=== PATIENT | female | born 1995 | race Caucasian/White ===

== ENCOUNTER 2016-12-09 20:35 | Emergency (ER) | payer OTHER ==
[~2016-12-09] VITALS: Ht 167.6 cm; Wt 71.6 kg
[~2016-12-09 20:35] MED LIST: BCPILLS PO; CETI10TA84 PO
[2016-12-09 20:49] VITALS: TEMP 36.9; Ht 167.6 cm; Wt 71.6 kg
[2016-12-09] MEDS ORDERED: IBUP-1050 PO (20:58)
--- NOTE | 2016-12-09 22:01 | DIAGNOSTIC IMAGING REPORT ---
RIGHT HAND MIN 3 VIEWS ROUTINE CLINICAL HISTORY: Right hand pain status post trauma COMPARISON: None. DISCUSSION: No fractures or dislocations are visualized. IMPRESSION: No fractures or dislocations identified. Electronically signed by: Srinath Vaughn M.D. 12/09/2016 10:00 PM Dictated Date/Time: 12/09/2016 9:59 PM
[2016-12-09] MEDS ORDERED: OXYCODONE IR HOME PACK PO STA (22:36)
--- NOTE | 2016-12-09 22:36 | EMERGENCY ROOM VISIT NOTE ---
History First contact with patient: 21:06 Chief Complaint: FINGER PAIN Stated Complaint: BROKEN/SPRAINED FINGER History of Present Illness The patient is a 21 year old female who presents to the Emergency Room via private vehicle accompanied by male with complaints of "broken/sprained finger" . The patient states that earlier today around 9 AM, she was attempting to escort a horse when the horse became spooked and ran forward while the rope that was attached to the horse was at attached the patient's hand. She states that the rope then became wrapped around her fingers, and lastly her right ring finger. She states that it then pulled this region and now she rates the pain in the right fourth digit and distal metacarpal as 6-7/10 with range of motion. She notes minimal pain at rest. She denies any bleeding but does point to bruising on the ventral aspect of the right fourth digit. She states she is right-handed and believes her tetanus is up-to-date. Review of Systems A complete 6-point Review of Systems was discussed with the patient, with pertinent positives and negatives listed in the History of Present Illness. All remaining Review of Systems questions can be considered negative unless otherwise specified. Past Medical/Surgical History Medical Problems: (1) Chronic streptococcal tonsillitis Surgical Problems: (1) No history of previous surgery Family History No pertinent family history at this time. Social History Smoking Status: Never Smoker Alcohol Use: occasionally Marital Status: single Occupation Status: unemployed Social History: Patient is currently employed working with horses. Current/Historical Medications Scheduled Control Pills ( Control Pills), 1 TAB PO DAILY Cetirizine (Zyrtec), 10 MG PO DAILY Ibuprofen (Advil), 200-600 MG PO Q4H Allergies Coded Allergies: Latex1 -Allergic Contact Dermititis (Verified Allergy, Mild, dermititis, ) Physical Exam Vital Signs Date Time Temp Pulse Resp B/P Pulse Ox O2 Delivery O2 Flow Rate FiO2 12/09/16 22:50 76 16 119/62 99 Room Air 12/09/16 20:49 36.9 80 20 120/79 99 Room Air Physical Exam VITAL SIGNS - Vital signs and nursing notes were reviewed. GENERAL -21-year-old female appearing her stated age and in noticeable discomfort throughout the exam. MUSCULOSKELETAL -there is a contusion noted to the ventral aspect of the right fourth digit. Minimal tenderness to palpation appreciated of the right fourth digit. Active ROM of the right fourth finger was not limited in either flexion or extension. No palpable deformities. Minimal tenderness over the MCP joint. Minimal tenderness extending into the fourth metacarpal. There is full flexion and extension of the right fourth digit actively and passively. NEUROLOGIC - no neurologic deficits appreciated in the right fourth digit VASCULAR - Capillary refill was brisk. +3/5 radial pulse palpated. Medical Decision & Procedures ER Provider Diagnostic Interpretation: RIGHT HAND MIN 3 VIEWS ROUTINE CLINICAL HISTORY: Right hand pain status post trauma COMPARISON: None. DISCUSSION: No fractures or dislocations are visualized. IMPRESSION: No fractures or dislocations identified. Electronically signed by: Srinath Vaughn M.D. 12/09/2016 10:00 PM Dictated Date/Time: 12/09/2016 9:59 PM Medications Administered Medications (Trade) Dose Ordered Sig/Jocelin Route Start Time Stop Time Status Last Admin Dose Admin Oxycodone HCl (Roxicodone Immediate Rel 5MG Home Pack) 1 [facility] UD STAT PO 12/09/16 22:36 12/09/16 22:37 DC 12/09/16 22:46 1 [facility] Medical Decision Patient was seen and evaluated as above. After obtaining a thorough history and physical examination there was evidence of trauma to the right fourth digit. The skin was intact. There was bruise formation underlying the right fourth nail as well as on the ventral aspect of the finger. There is no evidence of complete tears of ligaments or tendons is or was full active flexion and extension of this digit. Radiographs were obtained. Patient declined pain medication initially. Radiograph results are negative. I agree with radiologist findings. These were discussed with the patient. It is likely the patient has experienced a contusion of the right fourth digit without evidence of fracture. Due to her level of pain she will be splinted, with a referral to orthopedics. She was given a home pack for OxyIR given her level of pain. I do not suspect any neurologic or vascular compromise. She was educated upon management today symptoms, was educated upon today's findings , had questions prior to discharge, was educated upon worrisome symptoms which to return, and was discharged home in good condition. In the evaluation and treatment of this patient, the following differential diagnoses were considered: Finger Fracture, Finger Dislocation, Finger Sprain, Finger Contusion, [place] Finger, or Mallet Finger. [place] Drug Monitoring Program Search Results: patient reviewed within database, no issues identified Impression Primary Impression: Contusion of right ring finger Departure Information Dispostion Home / Self-Care Condition GOOD Referrals Jose Holman M.D. (PCP) Darren Ulloa, DO Patient Instructions My [facility] Additional Instructions You have been treated in the Emergency Department for right 4th digit injury. You have been prescribed Oxy IR to be used for pain control. This is a narcotic medication. You cannot drive or consume alcohol while on this medicine. This medicine should only be used for pain that cannot be controlled with over-the- counter pain medicines. For pain control, you can use the following [id number] medicines (if >12 yo): - Regular strength (325mg/tab) Tylenol (acetaminophen) 2 tabs every 4-6 hours as needed. Do not exceed 12 tablets in a 24 hour period. Avoid taking more than 4 grams (4000 mg) of Tylenol per day. This includes any other sources of acetaminophen you may take on a regular basis. - Regular strength (200 mg/tab) Advil (ibuprofen) 1-2 tabs every 4-6 hours as needed. Do not exceed a dose of 3200 mg per day. If this is a recent injury (<24 hrs), ice can be applied to the area of pain for the first 3 days to help decrease pain and inflammation. You have been provided the number for an Orthopaedic Surgeon. You should call this number as soon as possible to establish a follow-up visit from today's Emergency Department visit. Keep the brace/splint in place until evaluated by Orthopedics. Return to the Emergency Department if your current symptoms worsen despite treatment course outlined above, or if you develop any of the following symptoms : intractable pain despite aforementioned treatment course or new onset of numbness or tingling of the fingers. Please return to the emergency departments with any new/concerning symptoms. Problem Qualifiers Primary Impression: Contusion of right ring finger Encounter type: initial encounter
[2016-12-09 22:50] VITALS: BP 119/62; PULSE 76; O2SAT 99
== END 2016-12-09 22:52 | disposition home or self-care (01) ==
LOC: C.EDB 20:40 → C.EDD 22:52
DX: S60.221A Contusion of right hand, initial encounter (principal); X58.XXXA Exposure to other specified factors, initial encounter; W23.0XXA Caught, crushed, jammed, or pinched between moving objects, initial encounter

== ENCOUNTER 2017-09-12 04:24 | Emergency (ER) | payer OTHER ==
[~2017-09-12] VITALS: Ht 162.6 cm; Wt 64.6 kg
[~2017-09-12 04:24] MED LIST changes: +IBUP-1050 PO
[2017-09-12 04:26] VITALS: Ht 162.6 cm; Wt 64.6 kg
[2017-09-12] MEDS ORDERED: KETOROLAC TROMETHAMINE 30 MG/ML VIAL IV STA (04:46)
[2017-09-12] MEDS ORDERED: SODIUM CHLORIDE 0.9% 1000ML 1,000 ML IV STA (04:46)
--- NOTE | 2017-09-12 04:49 | EMERGENCY ROOM VISIT NOTE ---
History Report prepared by Darryn: Jacqueline Sánchez Under the Supervision of: Dr. Lesly Zhong D.O. First contact with patient: 04:29 Chief Complaint: FEVER Stated Complaint: FEVER FOR A WEEK History of Present Illness The patient is a 22 year old female who presents to the Emergency Room with complaints of a constant fever beginning 1 week ago. The patient states that she has been feeling sick over the last week with body aches and a fever. She reports that she has a history of migraines and tension headaches and has had a migraine over the last week. She notes that when she moves her eyes it feels like her "brain is cooking inside her head". The patient complains of swollen lymph nodes, diaphoresis, and chills. She denies any nausea, vomiting, diarrhea , congestion, abnormal vaginal discharge, and recent travel. She reports that she was seen at urgent care 2 days ago and was told that she likely had the flu and to be seen in the ED if the fever was not resolved in 3 days. The patient states that she did not get a flu shot this year and has had some sick contacts that are not as sick as she is. She notes that she is on control and has her period now. Source of History: patient Onset: 1 week ago Position: other (global) Quality: other (fever) Timing: constant Associated Symptoms: + chills, + headache, + diaphoresis, No nausea, No vomiting, No diarrhea Note: She denies any congestion, abnormal vaginal discharge, and recent travel. Review of Systems See HPI for pertinent positives & negatives. A total of 10 systems reviewed and were otherwise negative. Past Medical & Surgical Medical Problems: (1) Chronic streptococcal tonsillitis Surgical Problems: (1) No history of previous surgery Family History No pertinent family history stated. Social History Smoking Status: Never Smoker Alcohol Use: occasionally Marital Status: single Occupation Status: employed Current/Historical Medications Scheduled Control Pills ( Control Pills), 1 TAB PO DAILY Scheduled PRN Methocarbamol (Robaxin), 1 TAB PO UD PRN for Muscle Spasms Allergies Coded Allergies: Latex1 -Allergic Contact Dermititis (Verified Allergy, Mild, dermititis, 09/12/17) Physical Exam Vital Signs Date Time Temp Pulse Resp B/P (MAP) Pulse Ox O2 Delivery O2 Flow Rate FiO2 09/12/17 06:40 36.9 63 15 113/64 97 09/12/17 06:00 80 18 120/74 97 Room Air 09/12/17 05:14 97 Room Air 09/12/17 04:26 37.8 123 20 125/76 96 Room Air Physical Exam HEENT: Head - normocephalic and atraumatic Pupils are equal, round, and reactive to light. Extraocular eye muscles are intact, and sclera are anicteric. Nose - moist nasal mucosa without discharge. Mouth - moist buccal mucosa. Oropharynx is nonerythematous and there is no tonsillar exudate or edema noted. Ears: TMs clear bilaterally. Neck: Supple; no nuchal rigidity, Slight anterior and posterior cervical lymphadenopathy. No supraclavicular lymphadenopathy. Heart: Regular rate and rhythm. There is a normal S1 and S2 with no murmurs, clicks, or gallops appreciated. Lungs: Clear to auscultation bilaterally with no wheezes, rales, or rhonchi. Abdomen: Soft, completely nontender, nondistended, with good bowel sounds. There are no palpable pulsatile masses or hepatosplenomegaly. There is no guarding, rigidity, or rebound noted. Slight inguinal lymphadenopathy. Extremities: No evidence of cyanosis, clubbing, or edema. There are easily palpable peripheral pulses. She has slight axillary lymphadenopathy. Skin: warm and diaphoretic with good turgor and no rashes. Medical Decision & Procedures ER Provider Diagnostic Interpretation: X-ray results as stated below per interpretation by me: Chest X-Ray: No pulmonary infiltrates, no obvious pneumonia. Laboratory Results 09/12/17 05:05 Red Blood Count 4.22, Mean Corpuscular Volume 87.9, Mean Corpuscular Hemoglobin 30.8, Mean Corpuscular Hemoglobin Concent 35.0, Mean Platelet Volume 9.5, Neutrophils (%) (Auto) 73.8, Lymphocytes (%) (Auto) 16.1, Monocytes (%) (Auto) 9.7, Eosinophils (%) (Auto) 0.0, Basophils (%) (Auto) 0.2, Neutrophils # (Auto) 6.85, Lymphocytes # (Auto) 1.50, Monocytes # (Auto) 0.90, Eosinophils # (Auto) 0.00, Basophils # (Auto) 0.02 09/12/17 05:05 Test 09/12/17 04:53 09/12/17 05:05 09/12/17 05:09 09/12/17 05:10 Influenza Type A Antigen Neg for Influ A (NEG) Influenza Type B Antigen Neg for Influ B (NEG) White Blood Count 9.29 K/uL (4.8-10.8) Red Blood Count 4.22 M/uL (4.2-5.4) Hemoglobin 13.0 g/dL (12.0-16.0) Hematocrit 37.1 % (37-47) Mean Corpuscular Volume 87.9 fL (80-100) Mean Corpuscular Hemoglobin 30.8 pg (25-34) Mean Corpuscular Hemoglobin Concent 35.0 g/dl (32-36) Platelet Count 193 K/uL (130-400) Mean Platelet Volume 9.5 fL (7.4-10.4) Neutrophils (%) (Auto) 73.8 % Lymphocytes (%) (Auto) 16.1 % Monocytes (%) (Auto) 9.7 % Eosinophils (%) (Auto) 0.0 % Basophils (%) (Auto) 0.2 % Neutrophils # (Auto) 6.85 K/uL (1.4-6.5) Lymphocytes # (Auto) 1.50 K/uL (1.2-3.4) Monocytes # (Auto) 0.90 K/uL (0.11-0.59) Eosinophils # (Auto) 0.00 K/uL (0-0.5) Basophils # (Auto) 0.02 K/uL (0-0.2) RDW Standard Deviation 39.5 fL (36.4-46.3) RDW Coefficient of Variation 12.2 % (11.5-14.5) Immature Granulocyte % (Auto) 0.2 % Immature Granulocyte # (Auto) 0.02 K/uL (0.00-0.02) Prothrombin Time 10.1 SECONDS (9.0-12.0) Prothromb Time International Ratio 1.0 (0.9-1.1) Activated Partial Thromboplast Time 30.4 SECONDS (21.0-31.0) Partial Thromboplastin Ratio 1.2 Anion Gap 7.0 mmol/L (3-11) Est Creatinine Clear Calc Drug Dose 91.1 ml/min Estimated GFR () 115.2 Estimated GFR (Non- 99.4 BUN/Creatinine Ratio 11.0 (10-20) Calcium Level 8.6 mg/dl (8.5-10.1) Total Bilirubin 0.3 mg/dl (0.2-1) Aspartate Amino Transf (AST/SGOT) 28 U/L (15-37) Alanine Aminotransferase (ALT/SGPT) 33 U/L (12-78) Alkaline Phosphatase 53 U/L (45-117) Total Protein 7.6 gm/dl (6.4-8.2) Albumin 3.0 gm/dl (3.4-5.0) Globulin 4.6 gm/dl (2.5-4.0) Albumin/Globulin Ratio 0.7 (0.9-2) Monoscreen NEG (NEG) Bedside Lactic Acid Venous 0.67 mmol/L (0.90-1.70) Urine Color YELLOW Urine Appearance CLEAR (CLEAR) Urine pH 5.0 (4.5-7.5) Urine Specific [place] 1.023 (1.000-1.030) Urine Protein 1+ (NEG) Urine Glucose (UA) NEG (NEG) Urine Ketones NEG (NEG) Urine Occult Blood 2+ (NEG) Urine Nitrite NEG (NEG) Urine Bilirubin NEG (NEG) Urine Urobilinogen NEG (NEG) Urine Leukocyte Esterase SMALL (NEG) Urine WBC (Auto) 10-30 /hpf (0-5) Urine RBC (Auto) 10-30 /hpf (0-4) Urine Hyaline Casts (Auto) 5-10 /lpf (0-5) Urine Epithelial Cells (Auto) >30 /lpf (0-5) Urine Bacteria (Auto) NEG (NEG) Urine Renal Epithelial Cells /lpf (0-5) Urine Mucus PRESENT (NONE PRSENT) Laboratory results per my review. Medications Administered Medications (Trade) Dose Ordered Sig/Jocelin Route Start Time Stop Time Status Last Admin Dose Admin Sodium Chloride 1,000 ml @ 999 mls/hr Q1H1M STAT IV 09/12/17 04:46 09/12/17 05:46 DC 09/12/17 05:06 999 MLS/HR Ketorolac Tromethamine (Toradol Inj) 30 mg NOW STAT IV 09/12/17 04:46 09/12/17 04:47 DC 09/12/17 05:08 30 MG Procedure 0445: Toradol Inj 30mg IV, Sodium Chloride 1000 ml @ 999 mls/hr IV. ED Course 0431: Past medical records reviewed. The patient was evaluated in room B7. A complete history and physical exam was performed. A septic protocol was performed. A urine specimen was obtained. A chest x-ray was obtained. Her nose was swab for influenza. 0445: Toradol Inj 30mg IV, Sodium Chloride 1000 ml @ 999 mls/hr IV. 0611: I reevaluated and updated the patient. 0623: Upon reevaluation, she was doing well. I discussed findings and results with the patient. She verbalized agreement of the treatment plan. The patient was discharged home. Medical Decision The patient is a 22 year old female who presents to the ED with a fever. Differential diagnosis includes sepsis, mono, influenza, UTI, PID. LAB: No leukocytosis Stable H&H Lactic acid is low LFTs are normal Glucose and Renal function is normal Influenza testing is negative Urinalysis has 2+ blood and small leukocyte esterase [place] is negative This is a 22-year-old female patient presents to the emergency department with persistent fever and sweating. She has no localized pain on physical exam. She denies any upper respiratory symptoms or cough. Influenza testing was negative. She does describe axillary and inguinal lymphadenopathy. WBCs were normal and monotest and was negative. The patient was given Toradol for her diffuse body aches was feeling much better at the time of discharge. I spent some time talking to the patient about the importance of rest. I suggested that she take off work so that she might be able to recover from this illness. She did not think this would be possible. Medication Reconcilliation Current Medication List: was personally reviewed by me Blood Pressure Screening Patient's blood pressure: Normal blood pressure Blood pressure disposition: Did not require urgent referral Impression Primary Impression: Fever Scribe Attestation The scribe's documentation has been prepared under my direction and personally reviewed by me in its entirety. I confirm that the note above accurately reflects all work, treatment, procedures, and medical decision making performed by me. Departure Information Dispostion Home / Self-Care Referrals Jose Holman M.D. (PCP) Forms HOME CARE DOCUMENTATION FORM, IMPORTANT VISIT INFORMATION Patient Instructions ED Fever Control, ED Fever Unconf Cause, My [facility] Additional Instructions Rest. Take tylenol or ibuprofen for pain and/or fever. Follow up with Dr. Holman if fevers persis. You should rest for the next 3 days Return to the ER if symptoms worsen. Problem Qualifiers Primary Impression: Fever Fever type: unspecified Qualified Codes: R50.9 - Fever, unspecified
[2017-09-12 05:14] VITALS: O2SAT 97
[2017-09-12 05:35] LABS: BASO % 0.2 %; BASO ABS # 0.02 K/uL (0-0.2); COMPLETE YES; HEMATOCRIT 37.1 % (37-47); IG% 0.2 %; LYMPH % 16.1 %; MEAN CELL VOLUME 87.9 fL (80-100); MEAN CORPUSCULAR HEMOGLOBIN 30.8 pg (25-34); MEAN PLATELET VOLUME 9.5 fL (7.4-10.4); MONO % 9.7 %; NEUT % 73.8 %; PLATELET COUNT 193 K/uL (130-400); RED BLOOD COUNT 4.22 M/uL (4.2-5.4); WHITE BLOOD COUNT 9.29 K/uL (4.8-10.8)
[2017-09-12 05:42] LABS: URINE APPEARANCE CLEAR (CLEAR); URINE BILIRUBIN NEG (NEG); URINE COLOR YELLOW; URINE EPITHELIAL CELL AUTO >30 /lpf (0-5); URINE NITRITE NEG (NEG); URINE SPECIFIC GRAVITY 1.023 (1.000-1.030); UROBILINOGEN NEG (NEG); ZZUR CULT IF INDIC CLEAN CATCH YES
[2017-09-12 05:43] LABS: PARTIAL THROMBOPLASTIN RATIO 1.2; PROTHROMBIN TIME (PATIENT) 10.1 SECONDS (9.0-12.0)
[2017-09-12 05:49] LABS: CALCIUM 8.6 mg/dl (8.5-10.1); CREATININE 0.83 mg/dl (0.60-1.20); POTASSIUM 3.5 mmol/L (3.5-5.1)
[2017-09-12 05:52] LABS: ALB/GLOB RATIO 0.7 (0.9-2)
[2017-09-12] MEDS ORDERED: METH-446 PO (05:52)
[2017-09-12 05:54] LABS: MANUAL MICROSCOPIC REQUIRED? NO; REVIEW REQ? YES
[2017-09-12 06:04] LABS: URINE MUCUS PRESENT (NONE PRSENT)
--- NOTE | 2017-09-12 06:39 | DIAGNOSTIC IMAGING REPORT ---
CHEST ONE VIEW PORTABLE HISTORY: 22 years-old Female Sepsis acute sepsis COMPARISON: None available TECHNIQUE: AP view of the chest FINDINGS: Cardiomediastinal and hilar silhouettes are within normal limits. No pneumothorax, pleural effusion or focal airspace consolidation. Bones of the chest are grossly intact. IMPRESSION: Normal chest radiograph. The above report was generated using voice recognition software. It may contain grammatical, syntax or spelling errors. Electronically signed by: Tyree Doan M.D. 09/12/2017 6:38 AM Dictated Date/Time: 09/12/2017 6:37 AM
[2017-09-12 06:40] VITALS: BP 113/64; PULSE 63; TEMP 36.9; O2SAT 97
== END 2017-09-12 06:41 | disposition home or self-care (01) ==
LOC: C.EDB 04:25
DX: R50.9 Fever, unspecified (principal); R51 Headache; R61 Generalized hyperhidrosis

== ENCOUNTER 2017-12-13 18:22 | Emergency (ER) | payer OTHER ==
[~2017-12-13] VITALS: Ht 167.6 cm; Wt 63.0 kg
[~2017-12-13 18:22] MED LIST changes: -CETI10TA84 PO; -IBUP-1050 PO; +METH-446 PO
[2017-12-13 18:24] VITALS: TEMP 36.6; Ht 167.6 cm; Wt 63.0 kg
[2017-12-13] MEDS ORDERED: FAMOTIDINE 20MG/5ML IV PUSH IV STA (18:36)
[2017-12-13] MEDS ORDERED: ONDANSETRON INJ 2 MG/ML 2 ML VIAL IV STA (18:36)
[2017-12-13] MEDS ORDERED: MAGIC SWIZZLE PO STA (18:36)
[2017-12-13] MEDS ORDERED: SODIUM CHLORIDE 0.9% 1000ML 1,000 ML IV STA (18:36)
[2017-12-13 19:02] LABS: BASO % 0.2 %; BASO ABS # 0.02 K/uL (0-0.2); EOS % 0.3 %; EOS ABS # 0.04 K/uL (0-0.5); HEMATOCRIT 39.5 % (37-47); HEMOGLOBIN 13.9 g/dL (12.0-16.0); IG# 0.03 K/uL (0.00-0.02); LYMPH ABS # 2.63 K/uL (1.2-3.4); MEAN CELL VOLUME 89.6 fL (80-100); MEAN CORPUSCULAR HEMOGLOBIN 31.5 pg (25-34); MEAN CORPUSCULAR HGB CONC 35.2 g/dl (32-36); MEAN PLATELET VOLUME 9.4 fL (7.4-10.4); MONO % 7.7 %; MONO ABS # 0.92 K/uL (0.11-0.59); NEUT % 69.5 %; NEUT ABS # 8.29 K/uL (1.4-6.5); PLATELET COUNT 172 K/uL (130-400); RED CELL DISTRIBUTION WIDTH CV 12.3 % (11.5-14.5); RED CELL DISTRIBUTION WIDTH SD 40.1 fL (36.4-46.3); WHITE BLOOD COUNT 11.93 K/uL (4.8-10.8)
[2017-12-13 19:23] LABS: ALBUMIN 3.7 gm/dl (3.4-5.0); CALCIUM 8.8 mg/dl (8.5-10.1); CREATININE 0.97 mg/dl (0.60-1.20); POTASSIUM 3.4 mmol/L (3.5-5.1)
[2017-12-13 19:26] LABS: TOTAL PROTEIN 8.4 gm/dl (6.4-8.2)
[2017-12-13] MEDS ORDERED: PROMETHAZINE HCL INJ 12.5 MG in SODIUM CHLORIDE 0.9% 50ML 50 ML IV STA (19:29)
[2017-12-13] MEDS ORDERED: CETI10TA84 PO (19:41)
[2017-12-13] MEDS ORDERED: METH500T37 PO (19:41)
--- NOTE | 2017-12-13 19:43 | DIAGNOSTIC IMAGING REPORT ---
ABDOMEN 2VIEW W/PA CHEST RTN CLINICAL HISTORY: ABDOMINAL PAIN/GI pain COMPARISON STUDY: 09/12/2017 FINDINGS: The soft tissues, psoas shadows, renal outlines and intestinal gas pattern appear normal. There is no evidence for bowel obstruction. There is no evidence for free intraperitoneal air. No abnormal abdominal calcifications are seen. A frontal view of the chest was performed and is unremarkable. IMPRESSION: Normal study. The above report was generated using voice recognition software. It may contain grammatical, syntax or spelling errors. Electronically signed by: Neal Mcgarry M.D. 12/13/2017 7:42 PM Dictated Date/Time: 12/13/2017 7:41 PM
[2017-12-13] MEDS ORDERED: DEXAMETHASONE SOD INJ 4 MG/ML VIAL IV STA (20:22)
[2017-12-13] MEDS ORDERED: DEXAMETHASONE **PF** INJ 10 MG/ML VIAL ONE (20:25)
[2017-12-13] MEDS ORDERED: PRED20TA2 PO (21:17)
[2017-12-13] MEDS ORDERED: PRLSR20 PO (21:17)
[2017-12-13] MEDS ORDERED: PHENERGAN 25MG HOMEPACK PO ONE (21:30)
[2017-12-13 21:36] VITALS: BP 101/61; PULSE 63; O2SAT 99
--- NOTE | 2017-12-13 21:52 | EMERGENCY ROOM VISIT NOTE ---
History Report prepared by Darryn: Ester Dove Under the Supervision of: Dr. Arcadio Quiroz D.O. First contact with patient: 18:29 Chief Complaint: ABDOMINAL PAIN Stated Complaint: S/P TONSILECTOMY, NAUSEA, ESOPHAGUS/ABD PAIN Nursing Triage Summary: pt c/o all over abd pain nausea and throat pain s/p tonsilectomy pt told by her dr to stop taking pain med since she was feeling sick to abd pt is taking liquid tylenol History of Present Illness The patient is a 22 year old female who presents to the Emergency Room with complaints of persistent abdominal pain starting 2 days ago. The patient had a tonsillectomy 2 days ago. She has been having nausea, abdominal pain, and sore throat since the surgery. She spoke with the patient relations director ENT doctor yesterday who suggested she try stopping the pain medications. She has stopped the medications , but is still having pain. She tried taking Maalox to no significant relief. She denies any diarrhea or fever. She has not been drinking a lot of liquids. She has a history of reflux. She has not had any other surgeries. She is not having any bleeding from her tonsils. Her last menstrual period was 1 week ago. Source of History: patient, family Onset: 2 days ago Position: abdomen Symptom Intensity: 6/10 Quality: other (pain) Timing: other (persistent) Associated Symptoms: + sorethroat, + nausea, No fevers, No diarrhea Review of Systems See HPI for pertinent positives & negatives. A total of 10 systems reviewed and were otherwise negative. Past Medical & Surgical Medical Problems: (1) Chronic streptococcal tonsillitis Surgical Problems: (1) No history of previous surgery Family History Cancer Heart disease Hypertension Lung disease Social History Smoking Status: Never Smoker Alcohol Use: occasionally Marital Status: single Occupation Status: employed Current/Historical Medications Scheduled Control Pills ( Control Pills), 1 TAB PO DAILY Cetirizine (Zyrtec), 10 MG PO DAILY Omeprazole (Prilosec), 20 MG PO DAILY Prednisone (Prednisone Tab), 40 MG PO DAILY Scheduled PRN Methocarbamol (Robaxin), 500 MG PO QID PRN for Muscle Spasms Allergies Coded Allergies: Latex1 -Allergic Contact Dermititis (Verified Allergy, Mild, dermititis, ) Physical Exam Vital Signs Date Time Temp Pulse Resp B/P (MAP) Pulse Ox O2 Delivery O2 Flow Rate FiO2 12/13/17 21:36 63 16 101/61 99 12/13/17 20:03 60 16 100/61 99 Room Air 12/13/17 18:24 36.6 86 18 128/80 99 Room Air Physical Exam GENERAL: Patient is awake, alert, mildly anxious appearing and uncomfortable. EYES: The conjunctivae are clear. The pupils are round and reactive. EARS, NOSE, MOUTH AND THROAT: Significant erythema and swelling in the posterior oropharynx, a post surgical scar was noted in the post tonsillectomy bed, there was no bleeding. Patient was tolerating her secretions well. NECK: The neck is nontender and supple. RESPIRATORY: Normal respiratory effort is noted there is no evidence of wheezing rhonchi or rales CARDIOVASCULAR: Regular rate and rhythm noted there no murmurs rubs or gallops normal S1 normal S2 GASTROINTESTINAL: The abdomen is soft. Epigastric pain to palpation. No guarding or rigidity. MUSCULOSKELETAL/EXTREMITIES: There is no evidence of gross deformity full range of motion is noted in the hips and shoulders SKIN: There is no obvious evidence of any rash. There are no petechiae, pallor or cyanosis noted. NEUROLOGIC: Patient is awake alert and oriented x3 Medical Decision & Procedures ER Provider Diagnostic Interpretation: X-ray results as stated below per interpretation by me and the radiologist. ABDOMEN 2VIEW W/PA CHEST RTN CLINICAL HISTORY: ABDOMINAL PAIN/GI pain COMPARISON STUDY: 09/12/2017 FINDINGS: The soft tissues, psoas shadows, renal outlines and intestinal gas pattern appear normal. There is no evidence for bowel obstruction. There is no evidence for free intraperitoneal air. No abnormal abdominal calcifications are seen. A frontal view of the chest was performed and is unremarkable. IMPRESSION: Normal study. The above report was generated using voice recognition software. It may contain grammatical, syntax or spelling errors. Electronically signed by: Neal Mcgarry M.D. 12/13/2017 7:42 PM Dictated Date/Time: 12/13/2017 7:41 PM Laboratory Results 12/13/17 18:45 Red Blood Count 4.41, Mean Corpuscular Volume 89.6, Mean Corpuscular Hemoglobin 31.5, Mean Corpuscular Hemoglobin Concent 35.2, Mean Platelet Volume 9.4, Neutrophils (%) (Auto) 69.5, Lymphocytes (%) (Auto) 22.0, Monocytes (%) (Auto) 7.7, Eosinophils (%) (Auto) 0.3, Basophils (%) (Auto) 0.2, Neutrophils # (Auto) 8.29, Lymphocytes # (Auto) 2.63, Monocytes # (Auto) 0.92, Eosinophils # (Auto) 0.04, Basophils # (Auto) 0.02 12/13/17 18:45 Test 12/13/17 18:45 White Blood Count 11.93 K/uL (4.8-10.8) Red Blood Count 4.41 M/uL (4.2-5.4) Hemoglobin 13.9 g/dL (12.0-16.0) Hematocrit 39.5 % (37-47) Mean Corpuscular Volume 89.6 fL (80-100) Mean Corpuscular Hemoglobin 31.5 pg (25-34) Mean Corpuscular Hemoglobin Concent 35.2 g/dl (32-36) Platelet Count 172 K/uL (130-400) Mean Platelet Volume 9.4 fL (7.4-10.4) Neutrophils (%) (Auto) 69.5 % Lymphocytes (%) (Auto) 22.0 % Monocytes (%) (Auto) 7.7 % Eosinophils (%) (Auto) 0.3 % Basophils (%) (Auto) 0.2 % Neutrophils # (Auto) 8.29 K/uL (1.4-6.5) Lymphocytes # (Auto) 2.63 K/uL (1.2-3.4) Monocytes # (Auto) 0.92 K/uL (0.11-0.59) Eosinophils # (Auto) 0.04 K/uL (0-0.5) Basophils # (Auto) 0.02 K/uL (0-0.2) RDW Standard Deviation 40.1 fL (36.4-46.3) RDW Coefficient of Variation 12.3 % (11.5-14.5) Immature Granulocyte % (Auto) 0.3 % Immature Granulocyte # (Auto) 0.03 K/uL (0.00-0.02) Anion Gap 5.0 mmol/L (3-11) Est Creatinine Clear Calc Drug Dose 84.4 ml/min Estimated GFR () 95.4 Estimated GFR (Non- 82.3 BUN/Creatinine Ratio 11.8 (10-20) Calcium Level 8.8 mg/dl (8.5-10.1) Total Bilirubin 0.6 mg/dl (0.2-1) Direct Bilirubin 0.2 mg/dl (0-0.2) Aspartate Amino Transf (AST/SGOT) 22 U/L (15-37) Alanine Aminotransferase (ALT/SGPT) 25 U/L (12-78) Alkaline Phosphatase 47 U/L (45-117) Total Protein 8.4 gm/dl (6.4-8.2) Albumin 3.7 gm/dl (3.4-5.0) Lipase 104 U/L (73-393) Human Chorionic Gonadotropin, Qual NEG (NEG) Laboratory results per my review. Medications Administered Medications (Trade) Dose Ordered Sig/Jocelin Route Start Time Stop Time Status Last Admin Dose Admin Sodium Chloride 1,000 ml @ 999 mls/hr Q1H1M STAT IV 12/13/17 18:36 12/13/17 19:36 DC 12/13/17 19:02 999 MLS/HR Ondansetron HCl (Zofran Inj) 4 mg NOW STAT IV 12/13/17 18:36 12/13/17 18:38 DC 12/13/17 19:02 4 MG Famotidine (Pepcid 20mg Iv Push) 20 mg ONE STAT IV 12/13/17 18:36 12/13/17 18:38 DC 12/13/17 19:02 20 MG Promethazine HCl 12.5 mg/Sodium Chloride 50.5 ml @ 204 mls/hr NOW STAT IV 12/13/17 19:29 12/13/17 19:43 DC 12/13/17 20:03 204 MLS/HR Dexamethasone Sodium Phosphate (Dexamethasone Inj Pf) 10 mg STK-MED ONCE .ROUTE 12/13/17 20:25 12/13/17 20:26 DC 12/13/17 20:31 10 MG Promethazine HCl (Phenergan 25MG Home Pack) 1 homepack UD ONCE PO 12/13/17 21:30 12/13/17 21:31 DC 12/13/17 21:33 1 HOMEPACK ED Course 1832: The patient was evaluated in room B5. A complete history and physical examination were performed. 1835: Famotidine 20 mg IV, Zofran Inj 4 mg IV, NSS 1000 ml @ 999 mls/hr IV. 1926: I reevaluated the patient. She is still nauseous. 1928: Promethazine HCl 12.5 mg/Sodium Chloride 50.5 ml @ 204 mls/hr IV. 1999: I reevaluated the patient. I updated her on the results. 2019: I discussed the patient's case with JENNA Friend ENT. He is in agreement with the plan. 2024: Decadron Inj 10 mg IV. 2103: Upon reevaluation, the patient is resting comfortably. I discussed the results and treatment plan with her. She verbalized agreement of the treatment plan. She was discharged home. 2129: Promethazine HCl 1 homepack PO. Medical Decision Prior records/ancillary studies reviewed. Triage Nursing notes reviewed. Additional history obtained from family. The patient's history was concerning for abdominal pain. Differential diagnosis: Etiologies such as appendicitis, diverticulitis, PUD, biliary pathology, UTI, pancreatitis, obstruction, mesenteric ischemia, aortic pathology, infections, inflammatory bowel disease, renal colic, as well as others were entertained. The patient is a 22-year-old female who is status post tonsillectomy. She has significant postoperative pain as well as epigastric abdominal pain. Her physical exam was not consistent with an acute surgical abdomen. Her postoperative area appears to be healing well. There is significant erythema and swelling but this does not appear to be infectious in nature. The eschar is well-appearing and there is no bleeding noted. I discussed patient's laboratory and radiographic studies with her and her family members. I also discussed her case with the on-call ear nose and throat physician. The patient was also treated with Decadron in the emergency department. She was encouraged to drink plenty clear liquids and continue all medications as prescribed. She was also encouraged to call her primary ear nose and throat physician on Friday morning to schedule a follow-up appointment. Otherwise she was encouraged to return the emergency department immediately if symptoms change worsen or the need arises. Medication Reconcilliation Current Medication List: was personally reviewed by me Blood Pressure Screening Patient's blood pressure: Normal blood pressure Blood pressure disposition: Did not require urgent referral Consults Time Called: 2015 Consulting Physician: JENNA Friend ENT Returned Call: 2019 I discussed the patient's case with him. He is in agreement with the plan. Impression Primary Impression: Nausea Additional Impressions: Post-operative pain S/P tonsillectomy Epigastric abdominal pain Scribe Attestation The scribe's documentation has been prepared under my direction and personally reviewed by me in its entirety. I confirm that the note above accurately reflects all work, treatment, procedures, and medical decision making performed by me. Departure Information Dispostion Home / Self-Care Prescriptions Omeprazole (PRILOSEC) 20 Mg Capcr 20 MG PO DAILY, #30 CAP Prov: Arcadio Quiroz, DO 12/13/17 Prednisone (Prednisone Tab) 20 Mg Tab 40 MG PO DAILY, #10 TAB Prov: Arcadio Quiroz, DO 12/13/17 Referrals Ehsan De D.O. Mazza, Anthony J. M.D. Forms HOME CARE DOCUMENTATION FORM, IMPORTANT VISIT INFORMATION Patient Instructions My [facility], Tonsillectomy Adenoidectomy About Additional Instructions Call your ear nose and throat physician on Friday to schedule a follow-up appointment. Continue all other medications as prescribed. Drink plenty clear liquids. Return to the emergency department if symptoms change worsen or the need arises. Problem Qualifiers
== END 2017-12-13 21:37 | disposition home or self-care (01) ==
LOC: C.EDB 18:22
DX: G89.18 Other acute postprocedural pain (principal); Z90.89 Acquired absence of other organs; R10.13 Epigastric pain; R11.0 Nausea; K21.9 Gastro-esophageal reflux disease without esophagitis; Z79.3 Long term (current) use of hormonal contraceptives; Z91.040 Latex allergy status; Z82.49 Family history of ischemic heart disease and other diseases of the circulatory system; Z83.6 Family history of other diseases of the respiratory system

== ENCOUNTER 2018-04-19 22:57 | Emergency (ER) | payer OTHER ==
[~2018-04-19] VITALS: Ht 165.1 cm; Wt 61.5 kg
[~2018-04-19 22:57] MED LIST changes: +CETI10TA84 PO; -METH-446 PO; +METH500T37 PO; +PRED20TA2 PO; +PRLSR20 PO
[2018-04-19 23:06] VITALS: TEMP 36.9; Ht 165.1 cm; Wt 61.5 kg
--- NOTE | 2018-04-19 23:24 | EMERGENCY ROOM VISIT NOTE ---
History Report prepared by Darryn: Mary Cha Under the Supervision of: Dr. Lesly Zhong D.O. First contact with patient: 23:13 Chief Complaint: FOOT PAIN Stated Complaint: POTENTIAL BROKEN FOOT History of Present Illness The patient is a 22 year old female who presents to the Emergency Room with complaints of right foot pain beginning at around 2030 tonight. She states a horse stepped on her foot when she was trying to do a turnout. She reports she cannot bear weight on it and believes it may be broken. The patient notes she has broken her right ankle a couple of times and she always has pain in her ankle. She denies any numbness or hurting herself in any other way. Source of History: patient Onset: around 2030 tonight Position: foot (right) Quality: other (right foot pain) Timing: other (after a horse stepped on her foot) Associated Symptoms: No numbness Review of Systems See HPI for pertinent positives & negatives. A total of 10 systems reviewed and were otherwise negative. Past Medical & Surgical Medical Problems: (1) Chronic streptococcal tonsillitis Surgical Problems: (1) No history of previous surgery Family History Cancer Heart disease Hypertension Lung disease Social History Smoking Status: Never Smoker Alcohol Use: occasionally Marital Status: single Occupation Status: employed Current/Historical Medications Scheduled Control Pills ( Control Pills), 1 TAB PO DAILY Cetirizine (Zyrtec), 10 MG PO DAILY Allergies Coded Allergies: Latex1 -Allergic Contact Dermititis (Verified Allergy, Mild, dermititis, ) Physical Exam Vital Signs Date Time Temp Pulse Resp B/P (MAP) Pulse Ox O2 Delivery O2 Flow Rate FiO2 04/20/18 00:20 65 16 120/66 98 04/19/18 23:06 36.9 100 18 130/83 99 Room Air Physical Exam Right Lower Extremity: Contusion and edema over the proximal 4th and 5th metatarsal. No findings at the ankle or knee. Medical Decision & Procedures ER Provider Diagnostic Interpretation: Radiology results as stated below per my review and interpretation: FOOT XRAY No acute fracture identified. No tarsal or metatarsal dislocation. ED Course 2315: The patient was evaluated in room C12. A complete history and physical exam was performed. The patient went for plain film of the foot. No acute fracture is identified. 0015: Ordered Oxycodone/Acetaminophen 1 tab PO 0007: I checked on the patient at this time. She refused pain medications. She was placed in a postop shoe. 0010: Upon reevaluation, the patient is feeling better. I discussed findings and results with her. She verbalized agreement of the treatment plan. She was discharged home. Medical Decision The patient is a 22 year old female who presents to the Emergency Room with complaints of right foot pain beginning at around 2030 tonight. Differential diagnosis include hematoma, contusion, fracture of midfoot or 5th metatarsal, as well as others were entertained. This is a 22-year-old female patient whose foot was stepped on by horse. She has pain over the proximal fourth and fifth metatarsals. There is contusion and edema in that area. X-ray reveals no evidence of a fracture. The patient refused oral pain medication. I recommended she use NSAIDs. She was placed in a postop shoe for comfort. I explained to the patient that x-rays would be reviewed in the morning by radiology. Medication Reconcilliation Current Medication List: was personally reviewed by me Blood Pressure Screening Patient's blood pressure: Normal blood pressure Blood pressure disposition: Did not require urgent referral Impression Primary Impression: Contusion of foot Scribe Attestation The scribe's documentation has been prepared under my direction and personally reviewed by me in its entirety. I confirm that the note above accurately reflects all work, treatment, procedures, and medical decision making performed by me. Departure Information Dispostion Home / Self-Care Referrals Jose Holman MD (PCP) Forms HOME CARE DOCUMENTATION FORM, IMPORTANT VISIT INFORMATION Patient Instructions My [facility] [employer] Additional Instructions Rest with your foot elevated. Take motrin - 600mg every 6 hours with food for pain Wear the post op shoe for comfort. Ice the foot Problem Qualifiers Primary Impression: Contusion of foot Encounter type: initial encounter Laterality: right Qualified Codes: S90.31XA - Contusion of right foot, initial encounter
[2018-04-20] MEDS ORDERED: OXYCODONE/ACETAMINOPHEN 5-325 TAB PO ONE (00:15)
[2018-04-20 00:20] VITALS: BP 120/66; PULSE 65; O2SAT 98
--- NOTE | 2018-04-20 06:26 | DIAGNOSTIC IMAGING REPORT ---
R FOOT MIN 3 VIEWS ROUTINE CLINICAL HISTORY: eval for fracture trauma. Pain. COMPARISON: None. DISCUSSION: The bones and joint spaces appear intact. There is no evidence of fracture, dislocation or bony disease. There is no evidence for soft tissue swelling. IMPRESSION: Negative study. The above report was generated using voice recognition software. It may contain grammatical, syntax or spelling errors. Electronically signed by: Neal Mcgarry M.D. 04/20/2018 6:25 AM Dictated Date/Time: 04/20/2018 6:25 AM
== END 2018-04-20 00:20 | disposition home or self-care (01) ==
LOC: C.EDB 22:58 → C.EDC 04-20 00:20
DX: S90.31XA Contusion of right foot, initial encounter (principal); W55.12XA Struck by horse, initial encounter; Z79.3 Long term (current) use of hormonal contraceptives; Z79.899 Other long term (current) drug therapy; Z91.040 Latex allergy status